=== PATIENT | female | born 2000 | race Caucasian/White ===

== ENCOUNTER 2022-11-17 00:15 | Emergency (ER) | payer OTHER ==
[~2022-11-17] VITALS: Ht 154.9 cm; Wt 82.6 kg
[2022-11-17 00:28] VITALS: BP_SYST 122; RESP 18; TEMP 98.7
[2022-11-17] MEDS ORDERED: BACI15OI13 TP (00:53)
[2022-11-17] MEDS ORDERED: DIPHTH,PERTUSS(ACELL),TET VAC 0.5 ML VIAL (Tdap) I.M. ONE (01:00)
[2022-11-17] MEDS ORDERED: ACETAMINOPHEN 500 MG TABLET PO ONE (01:00)
[2022-11-17 01:18] VITALS: BP_SYST 110; PULSE 87; RESP 20; TEMP 97.7; O2SAT 97
== END 2022-11-17 01:00 | disposition home or self-care (01) ==
LOC: SED 00:15
DX: S61.234A Puncture wound without foreign body of right ring finger without damage to nail, initial encounter (principal); Z79.899 Other long term (current) drug therapy; X58.XXXA Exposure to other specified factors, initial encounter; Y93.D9 Activity, other involving arts and handcrafts; Y92.89 Other specified places as the place of occurrence of the external cause; Y99.8 Other external cause status
CPT/HCPCS: 99282